=== PATIENT | male | born 1965 | race African-American/Black ===

== ENCOUNTER 2021-11-08 17:09 | Inpatient (IN) | payer MEDICAID, OTHER ==
[~2021-11-08] VITALS: Ht 185.4 cm; Wt 131.5 kg
[2021-11-08] MEDS ORDERED: MORPHINE SULFATE 4 MG/ML CPJ (NOT FOR IM USE) IV ONE (17:45)
[2021-11-08] MEDS ORDERED: ONDANSETRON HCL 4MG/2ML INJ IV ONE (17:45)
[2021-11-08 17:54] LABS: BASOPHILS % 0.6 % (0.0-2.0); EOSINOPHILS % 1.3 % (0.0-5.0); HEMATOCRIT. 41.6 % (42.0-52.0); HEMOGLOBIN. 13.6 g/dL (14.0-18.0); LYMPHOCYTES % 31.9 % (20.0-50.0); MEAN CORPUSCULAR HEMOGLOBIN 26.8 pg (28.0-32.0); MEAN CORPUSCULAR VOLUME 82.3 fL (80.0-94.0); MEAN PLATELET VOLUME 8.6 fl (7.4-10.4); MONOCYTES % 5.6 % (2.0-8.0); NEUTROPHILS % 60.6 % (40.0-76.0); PLATELET 221 x1000/uL (130-400); RED BLOOD CELL COUNT 5.06 mill/uL (4.7-6.1); RED CELL DISTRIBUTION WIDTH 14.4 % (11.6-14.6)
[2021-11-08 18:02] LABS: CHLORIDE 106 mEq/L (98-107)
[2021-11-08 18:11] LABS: ETHANOL BLOOD < 10 mg/dL
[2021-11-08] MEDS ORDERED: DEXAMETHASONE 10 MG/ML VIAL IV NR (18:11)
[2021-11-08] MEDS ORDERED: LEVETIRACETAM 1000MG PREMIX 100 ML IV NR (18:11)
[2021-11-08] MEDS ORDERED: IOHEXOL-350 100 ML BOTTLE ONE (18:12)
[2021-11-08] MEDS ORDERED: NICARDIPINE 40MG/200ML PREMIX 200 ML IV PRN (18:14)
[2021-11-08] MEDS ORDERED: LEVETIRACETAM 500MG PREMIX 100 ML IV ONE (18:15)
[2021-11-08] MEDS: ONDANSETRON HCL 4MG/2ML INJ IV NR ×2 (18:39→23:55)
[2021-11-08] MEDS ORDERED: MANNITOL 20% (20GM/100ML) BAG 500ML PREMIX IV ONE (19:30)
[2021-11-08] MEDS ORDERED: NICARDIPINE 100 MG in SODIUM CHLORIDE 0.9% 60 ML IV PRN ×2 (19:30→19:45)
[2021-11-08] MEDS ORDERED: MANNITOL 20% 500 ML IV SCH (19:30)
[2021-11-08 19:42] LABS: CLARITY URINE CLEAR (CLEAR); COLOR URINE YELLOW (YELLOW); KETONES URINE NEGATIVE (NEGATIVE); LEUKOCYTE ESTERASE URINE NEGATIVE (NEGATIVE); NITRITE URINE NEGATIVE (NEGATIVE); OCCULT BLOOD URINE NEGATIVE (NEGATIVE); PH URINE 5.5 (4.5-8.0); PROTEIN URINE 2+ (NEGATIVE); SPECIFIC GRAVITY URINE 1.021 (1.005-1.030); UROBILINOGEN URINE 0.2 E.U./dL (0.2-1.0)
[2021-11-08] MEDS ORDERED: MORPHINE SULFATE 2 MG/ML CPJ (NOT FOR IM USE) IV PRN (19:45)
[2021-11-08 19:52] LABS: *AMPHETAMINES SCREEN URINE NEGATIVE (NEGATIVE); *BARBITURATES SCREEN URINE NEGATIVE (NEGATIVE); *BENZODIAZEPINES SCREEN URINE NEGATIVE (NEGATIVE); *COCAINE SCREEN URINE NEGATIVE (NEGATIVE); CANNABINOID URINE SCREEN NEGATIVE (NEGATIVE); METHADONE URINE SCREEN NEGATIVE (NEGATIVE); OPIATES URINE SCREEN NEGATIVE (NEGATIVE); PHENCYCLIDINE URINE SCREEN NEGATIVE (NEGATIVE)
[2021-11-08] MEDS ORDERED: NALOXONE HCL 0.4MG/ML VIAL IV PRN (20:00)
[2021-11-08] MEDS: NICARDIPINE 100 MG in SODIUM CHLORIDE 0.9% 60 ML IV PRN (22:54)
[2021-11-08 23:30] VITALS: BP 149/99
[2021-11-08 23:35] VITALS: BP 149/99
[2021-11-08 23:45] VITALS: BP 149/102
[2021-11-08] MEDS: DEXT 5%/LACTATED RINGERS 1,000 ML IV SCH (23:55)
[2021-11-09] VITALS (93 sets, daily range): BP systolic 99–161; BP diastolic 53–107
[2021-11-09] MEDS ORDERED: ACETAMINOPHEN 325MG TABLET PO PRN (06:15)
[2021-11-09] MEDS ORDERED: ONDANSETRON HCL 4MG TABLET PO PRN (06:15)
[2021-11-09] MEDS ORDERED: ONDANSETRON HCL 4MG/2ML INJ IV PRN (08:00)
[2021-11-09] MEDS ORDERED: HYDRALAZINE 20MG/ML VIAL IV PRN (08:00)
[2021-11-09] MEDS: LISINOPRIL 40MG TABLET PO SCH (08:05)
[2021-11-09 08:49] LABS: HEMATOCRIT 43.4 % (42.0-52.0); HEMOGLOBIN 14.2 g/dL (14.0-18.0); MEAN CORPUSCULAR HEMOGLOBIN 26.4 pg (28.0-32.0); MEAN CORPUSCULAR VOLUME 80.7 fL (80.0-94.0); PLATELET 225 x1000/uL (130-400); RED BLOOD CELL COUNT 5.38 mill/uL (4.7-6.1); RED CELL DISTRIBUTION WIDTH 14.2 % (11.6-14.6)
[2021-11-09] MEDS ORDERED: FAMOTIDINE 20MG/2ML VIAL IV SCH (09:00)
[2021-11-09] MEDS: LEVETIRACETAM 500MG PREMIX 100 ML IV SCH ×2 (10:12→20:43)
[2021-11-09] MEDS: NICARDIPINE 100 MG in SODIUM CHLORIDE 0.9% 60 ML IV PRN ×2 (10:13→20:44)
[2021-11-09] MEDS: DEXT 5%/LACTATED RINGERS 1,000 ML IV SCH (13:55)
[2021-11-09] MEDS: HYDRALAZINE HCL 100MG TABLET PO SCH ×2 (13:55→23:04)
[2021-11-09] MEDS: FAMOTIDINE 20MG TABLET PO SCH (23:04)
[2021-11-10] VITALS (82 sets, daily range): BP systolic 87–153; BP diastolic 52–100
[2021-11-10 05:42] LABS: HEMATOCRIT. 39.7 % (42.0-52.0); HEMOGLOBIN. 12.8 g/dL (14.0-18.0); MEAN CORPUSCULAR HEMOGLOBIN 26.5 pg (28.0-32.0); MEAN CORPUSCULAR VOLUME 82.1 fL (80.0-94.0); PLATELET 253 x1000/uL (130-400); RED BLOOD CELL COUNT 4.83 mill/uL (4.7-6.1); RED CELL DISTRIBUTION WIDTH 14.2 % (11.6-14.6)
[2021-11-10] MEDS: DEXT 5%/LACTATED RINGERS 1,000 ML IV SCH (07:00)
[2021-11-10] MEDS: HYDRALAZINE HCL 100MG TABLET PO SCH ×3 (07:00→21:46)
[2021-11-10 07:22] LABS: PLATELET ESTIMATE NORMAL
[2021-11-10] MEDS: LEVETIRACETAM 500MG PREMIX 100 ML IV SCH ×2 (08:59→20:45)
[2021-11-10] MEDS: LISINOPRIL 40MG TABLET PO SCH (09:00)
[2021-11-10] MEDS: FAMOTIDINE 20MG TABLET PO SCH ×2 (09:00→20:47)
[2021-11-10] MEDS: AMLODIPINE 10MG TABLET PO SCH (11:07)
[2021-11-10] MEDS: CLONIDINE 0.1MG TABLET PO SCH ×2 (14:51→21:45)
[2021-11-11 04:46] VITALS: BP 128/78
[2021-11-11] MEDS: CLONIDINE 0.1MG TABLET PO SCH ×3 (06:00→21:51)
[2021-11-11] MEDS: HYDRALAZINE HCL 100MG TABLET PO SCH ×4 (06:00→22:00)
[2021-11-11 07:04] LABS: BASOPHILS % 0.1 % (0.0-2.0); EOSINOPHILS % 0.1 % (0.0-5.0); HEMATOCRIT. 41.7 % (42.0-52.0); HEMOGLOBIN. 13.4 g/dL (14.0-18.0); LYMPHOCYTES % 17.1 % (20.0-50.0); MEAN CORPUSCULAR HEMOGLOBIN 26.4 pg (28.0-32.0); MEAN CORPUSCULAR VOLUME 82.2 fL (80.0-94.0); MEAN PLATELET VOLUME 8.9 fl (7.4-10.4); MONOCYTES % 5.8 % (2.0-8.0); NEUTROPHILS % 76.9 % (40.0-76.0); PLATELET 229 x1000/uL (130-400); RED BLOOD CELL COUNT 5.07 mill/uL (4.7-6.1); RED CELL DISTRIBUTION WIDTH 14.8 % (11.6-14.6)
[2021-11-11 07:22] LABS: CHLORIDE 106 mEq/L (98-107)
[2021-11-11 07:30] LABS: PARTIAL THROMBOPLASTIN TIME 25.6 sec (23.4-31.0); PROTHROMBIN TIME 10.9 sec (9.6-11.0)
[2021-11-11 08:00] VITALS: BP 98/67
[2021-11-11] MEDS: LISINOPRIL 40MG TABLET PO SCH (09:00)
[2021-11-11] MEDS: AMLODIPINE 10MG TABLET PO SCH (09:00)
[2021-11-11] MEDS: FAMOTIDINE 20MG TABLET PO SCH ×3 (10:15→21:47)
[2021-11-11] MEDS: LEVETIRACETAM 500MG PREMIX 100 ML IV SCH (10:16)
[2021-11-11] MEDS ORDERED: HYDRALAZINE 10 MG in SODIUM CHLORIDE 0.9% 49.5 ML IV PRN (10:30)
[2021-11-11] MEDS ORDERED: NIFE-32 MT (11:54)
[2021-11-11] MEDS ORDERED: HYDR100T26 PO ×2 (11:54)
[2021-11-11] MEDS ORDERED: LOSA100T32 MT ×2 (11:54)
[2021-11-11] MEDS ORDERED: METF-414 MT (11:55)
[2021-11-11] MEDS ORDERED: KEPP500 MT ×2 (11:55)
[2021-11-11 12:00] VITALS: BP 107/64
[2021-11-11 16:00] VITALS: BP 126/79
[2021-11-11 20:00] VITALS: BP 138/87
[2021-11-11] MEDS: LEVETIRACETAM 500MG TABLET PO SCH ×2 (21:00→21:45)
[2021-11-12] VITALS (7 sets, daily range): BP systolic 117–144; BP diastolic 74–87
[2021-11-12] MEDS: HYDRALAZINE HCL 100MG TABLET PO SCH ×3 (05:40→21:14)
[2021-11-12] MEDS: CLONIDINE 0.1MG TABLET PO SCH ×3 (06:08→21:13)
[2021-11-12] MEDS: LISINOPRIL 40MG TABLET PO SCH (08:39)
[2021-11-12] MEDS: FAMOTIDINE 20MG TABLET PO SCH ×2 (08:40→21:12)
[2021-11-12] MEDS: LEVETIRACETAM 500MG TABLET PO SCH ×2 (08:40→21:12)
[2021-11-12] MEDS: AMLODIPINE 10MG TABLET PO SCH (08:41)
[2021-11-13] VITALS: BP 100/53
[2021-11-13 04:00] VITALS: BP 107/65
[2021-11-13] MEDS: CLONIDINE 0.1MG TABLET PO SCH ×2 (06:00→14:00)
[2021-11-13] MEDS: HYDRALAZINE HCL 100MG TABLET PO SCH ×3 (06:00→14:58)
[2021-11-13 08:00] VITALS: BP 132/86
[2021-11-13] MEDS: LISINOPRIL 40MG TABLET PO SCH (08:55)
[2021-11-13] MEDS: AMLODIPINE 10MG TABLET PO SCH (08:56)
[2021-11-13] MEDS: LEVETIRACETAM 500MG TABLET PO SCH (08:56)
[2021-11-13] MEDS: FAMOTIDINE 20MG TABLET PO SCH (08:57)
[2021-11-13 12:00] VITALS: BP 123/81
[2021-11-13] MEDS ORDERED: AMLODIPINE 10MG TABLET PO NR (15:15)
[2021-11-13 15:17] VITALS: BP 132/90
== END 2021-11-13 15:43 | disposition home health service (06) | DRG 44 ==
LOC: ER 17:09 → MICUNO 21:20 → ENRESERV 22:06 → 6EST 11-10 20:15
PROVIDERS: ADMIT Internal Medicine Pulmonary Disease; ATTEND Internal Medicine Pulmonary Disease
DX: I61.4 Nontraumatic intracerebral hemorrhage in cerebellum (principal); N17.0 Acute kidney failure with tubular necrosis; E11.9 Type 2 diabetes mellitus without complications; I10 Essential (primary) hypertension; E87.6 Hypokalemia; E66.9 Obesity, unspecified; Z68.38 Body mass index [BMI] 38.0-38.9, adult; H53.8 Other visual disturbances; I16.1 Hypertensive emergency
CPT/HCPCS: 36415; 70496; 70498; 71045; 80048; 80053; 80305; 80320; 81003; 82962; 83036; 84145; 85025; 85027; 93005; 93970; 97112; 97116; 97161; 97163; 97165; 97166; 97530; 97535; 99291; J1100; J1953; J2270; J2405; J3490; J7050; Q9967; G0480